=== PATIENT | male | born 1965 | race Caucasian/White ===

== ENCOUNTER → 2019-11-13 | Outpatient (CLI) | payer BC ==
--- NOTE | 2019-11-13 15:22 | RAD ---
KNEE LEFT 2V, KNEE STANDING BILAT AP 11/13/2019 12:00 AM INDICATION: Left knee pain COMPARISON: None available. TECHNIQUE: 3 views of the left knee including a weightbearing view is provided. FINDINGS/ IMPRESSION: 1. There is mild to moderate symmetric medial femorotibial joint space narrowing with marginal osteophytosis compatible with mild to moderate osteoarthrosis. Mild lateral femorotibial joint space narrowing with marginal osteophytosis. Mild patellofemoral joint space narrowing. Next on 2. Small knee joint effusion. Vascular calcific effusions are present. 3. No acute fracture or dislocation. Contralateral knee appears intact with mild to moderate medial femorotibial joint space narrowing. Electronically signed by: Cait Esparza MD (11/13/2019 3:19 PM) [facility]
== END | disposition home or self-care (01) ==
LOC: DXRAD 14:28
PROVIDERS: ATTEND Orthopaedic Surgery
DX: M25.462 Effusion, left knee (principal); M25.762 Osteophyte, left knee
CPT/HCPCS: 73560; 73565